=== PATIENT | female | born 1975 | race Caucasian/White ===

== ENCOUNTER 2022-08-16 16:27 | Emergency (ER) | payer BC, SELFPAY ==
[2022-08-16 16:37] VITALS: BP 192/122; BP 194/104; PULSE 110; PULSE 125; RESP 18; O2SAT 100; O2SAT 98; BMI 23.4
--- NOTE | 2022-08-16 16:41 | ED.ARRPALP ---
HPI - Arrhythmia/Palpitations General Chief Complaint: Arrhythmia/Palpitations Stated Complaint: FEELS FAINT/FLUSH ?RXN TO NEW MED PER EMS Time Seen by Provider: 08/16/22 16:30 Source: patient and EMS Mode of arrival: EMS Limitations: no limitations History of Present Illness HPI narrative: 37-year-old female who presents emergency department for evaluation tachycardia, facial flushing, disorientation and tingling in her entire body. The patient states that in June of 2022 she had COVID. She states that since that time she has been having increased anxiety. She states she does have a history of anxiety but has never been on medications. She has had panic attacks in the past. She states that she saw her doctor on Wednesday (3 days prior) and was started on venlafaxine 37.5 mg daily. She states she took a dose yesterday and felt slightly drowsy but was able to do all of her activities without any difficulty. She states she took a dose again this morning. She states that she did usual routines. This afternoon she was doing some yoga and stretching. After this exercise she sat on her sofa and then felt her heart was racing fast. She states that her face became flushed. She felt disoriented. She states that her whole body was tingling. She was concerned about the symptoms and called an ambulance. On arrival to the emergency department she is feeling better. She states that these symptoms are different than her panic attack symptoms. The patient denied being depressed, suicidal or homicidal. She is not certain why she is having increased anxiety, she states that her life is less stressful than normal. Related Data Allergies Allergy/AdvReac Type Severity Reaction Status Date / Time codeine Allergy Unknown Verified 08/16/22 16:37 Sulfa (Sulfonamide Allergy Unknown Verified 08/16/22 16:37 Antibiotics) Review of Systems Review of Systems: Yes all other systems are reviewed and are negative PMFSH Past Medical History PMFSH Narrative: Past medical history: Anxiety, hypertension. Social history: She denies tobacco use. She occasionally drinks alcohol. She denies drug use. Medical History (Updated 08/16/22 @ 18:28 by Fernando Garcia MD) Anxiety HTN (hypertension) Social History Social History Alcohol intake: current Alcohol intake frequency: 0-2 drinks per day Smoked in Last 30 Days: No Use of substances other than those prescribed or required for medical reasons: No Advance Directives: No Advance Directives Information Provided: No Patient : No Physical Exam Vital Signs: Vital Signs: Last Vital Signs Temp 98.5 F 08/16/22 17:18 Pulse 114 H 08/16/22 17:18 Resp 12 08/16/22 17:18 BP 184/111 H 08/16/22 17:18 Pulse Ox 100 08/16/22 17:18 O2 Del Method 08/16/22 17:18 BMI result Body Mass Index 23.4 Const: Other: Awake, alert, female patient, pleasant, cooperative, does appear to be anxious, is in no distress, answers all questions appropriately HEENT: Head: Yes normal to inspection, Yes normocephalic and Yes atraumatic Ears: external ears normal General nose exam: Normal external nose present Face and sinus: Yes normal facial exam Mouth: Normal oral and palatal mucosa present Throat: Yes posterior oropharynx normal Eyes: General: appearance normal, both eyes and all related structures Pupils: Equal, round and reactive pupils present Neck: Neck: Yes normal visual inspection, Yes no lymphadenopathy, Yes trachea midline and Yes supple Chest: Chest palpation & inspection: normal inspection of the chest and normal palpation of entire chest wall Resp: Effort & Inspection: normal respiratory effort and able to speak in complete sentences Auscultation: clear to auscultation bilaterally Cardio: Rate: tachycardic Rhythm: regular rhythm Heart sounds: S1 normal heart sound present, S2 normal heart sound present and no murmurs GI: Inspection: Yes normal to inspection Palpation (GI): Soft to palpation, nontender and no guarding Auscultation: normal bowel sounds : General: Yes no CVA tenderness Back/Spine/Pelvis: Back: no CVA tenderness Skin: General skin exam: no rashes or lesions noted Neuro: Cranial nerves: Yes CN's II-XII intact bilaterally and Yes Equal, round and reactive pupils present Cognition (Neuro): normal cognition Motor exam (neuro): 5/5 motor strength present throughout Extrem: General: Yes normal to inspection Psych: Appearance: grossly normal Speech and movement: Normal speech and movement present Affect: normal affect Attitude: cooperative Thought process: Normal thought process present Thought content: Normal thought content present Medications Administered Discontinued Medications Generic Name Dose Route Start Last Admin Trade Name Freq PRN Reason Stop Dose Admin Lorazepam 0.5 mg 08/16/22 17:21 08/16/22 17:28 Lorazepam 0.5 Mg Tablet PO 08/16/22 17:22 0.5 mg ONCE ONE Administration Medical Decision Making Medical Decision Making [facility] Narrative: 47-year-old female who presents emergency department for evaluation of sudden onset of facial flushing, tachycardia, body tingling this, and feeling disoriented. Patient's PCP started her on a new medication yesterday for anxiety, venlafaxine 37.5 mg daily. She took a dose yesterday morning and felt drowsy otherwise had no other side effects. She took another dose this morning and prior to coming to the emergency department, after stretching and doing yoga exercise she had sudden onset of the above symptoms. Paramedics reported that the patient did have an elevated blood pressure 194/104 with an elevated pulse of 110. At the time my evaluation, the patient does appear to be anxious otherwise is not in distress. Heart exam did reveal tachycardia otherwise her exam was unremarkable. I did order laboratory evaluation includes CBC, CMP, troponin, EKG. Patient will be treated with Ativan 1 mg orally. Patient will be placed on a cardiac and O2 saturation monitor. 1823: Patient's laboratory evaluation was unremarkable. Patient's 12 EKG was normal. The patient's presentation is most likely caused by an adverse reaction to the venlafaxine or caused by her anxiety/panic attacks. Patient wanted to start with only 0.5 mg of Ativan but she is not feeling better therefore she was ordered to get a 2nd dose of Ativan 1 mg orally. The patient will be discharged home. She was advised to contact her provider who prescribed her medication to discuss discontinuing in trying another medication for her anxiety. Patient's blood pressure was high but she states that she does have white coat syndrome and that her blood pressures at home are usually normal. Patient was given printed and verbal instructions Differential Diagnosis Differential diagnosis includes but is not limited to anxiety, panic attack, tachy arrhythmia, electrolyte abnormality, NSTEMI, adverse reaction to venlafaxine Lab Data [facility] Lab Attestation statement: I reviewed the patient's lab results. My independent interpretation of the patient's laboratory evaluation is as follows: CBC was normal. Bicarb elevated 30. Glucose elevated 142. High sensitive troponin I below detectable limits. 08/16/22 17:17 08/16/22 17:17 Labs: Lab Results 08/16/22 08/16/22 08/16/22 Range/Units 17:17 17:17 17:17 WBC 8.2 (4.8-10.8) X10*3/uL RBC 4.39 (4.20-5.50) X10*6/uL Hgb 14.1 (12.0-16.0) g/dl Hct 40.9 (37.0-47.0) % MCV 93.2 (80.0-98.0) fL MCH 32.1 (27.0-33.0) pg MCHC 34.5 (31.0-35.0) g/dl RDW 11.9 (11.0-16.0) % Plt Count 328 (160-400) X10*3/uL MPV 10.1 (9.4-12.3) fL Immature Gran % (Auto) 0.2 (0.0-0.4) % Neut % (Auto) 78.5 H (45-73) % Lymph % (Auto) 14.8 L (20-40) % Cloud % (Auto) 4.8 (2-11) % Eos % (Auto) 0.7 (0-4) % Baso % (Auto) 1.0 (0-2) % Lymph # (Auto) 1.2 (1.2-4.9) X10*3/uL Cloud # (Auto) 0.4 (0.1-1.2) X10*3/uL Eos # (Auto) 0.1 (0.0-0.4) X10*3/uL Baso # (Auto) 0.1 (0.0-0.2) X10*3/uL Abs Immat Gran (auto) 0.02 (0.00-0.03) X10*3/uL Absolute Neuts (auto) 6.4 (2.0-8.3) x10*3/uL Absolute Nucleated RBC 0.000 (0.0-0.012) X10*3/uL Nucleated RBC % (auto) 0.0 (0.0-0.2) /100WBC Sodium 139 (135-145) mmol/L Potassium 3.6 (3.3-5.1) mmol/L Chloride 101 (96-108) mmol/L Carbon Dioxide 30 H (22-29) mmol/L Anion Gap 12 (12-20) BUN 16 (9-16) mg/dL Creatinine 0.79 (0.5-1.4) mg/dL Estim Creat Clear Calc 64.5 Estimated GFR > 60 Random Glucose 142 H (60-115) mg/dL Calcium 9.4 (8.4-10.2) mg/dL Total Bilirubin 0.3 (0.0-1.0) mg/dL AST 20 (5-31) U/L ALT 16 (0-31) U/L Alkaline Phosphatase 56 (39-117) U/L Troponin I High Sens < 3.5 (<3.5-17.0) ng/L Total Protein 7.7 (6.5-8.0) g/dL Albumin 4.6 (3.5-5.0) g/dL Independent Interpretation I performed an independent interpretation of an: EKG Interpretation: My independent interpretation of the patient's 12 EKG is as follows: Normal sinus rhythm with a rate of 94, normal WA interval, prolonged QRS of 100 milliseconds, normal QTC interval of 445 milliseconds, inverted T-wave in lead 3, no ST segment elevation, no ST segment depression no old EKG for comparison. This is a normal EKG. Discharge Plan Discharge Clinical Impression: Anxiety, Sinus tachycardia Adverse drug reaction Qualifiers: Encounter type: initial encounter Qualified Code(s): T50.905A - Adverse effect of unspecified drugs, medicaments and biological substances, initial encounter Patient Disposition: Home, Self-Care Instructions: Anxiety (ED) Additional Instructions: Your blood work was normal. Your high sensitivity troponin I which is a marker of heart damage was below detectable limits which is very reassuring. Your 12 EKG was normal. At this time, your symptoms are either consistent with an adverse drug reaction to venlafaxine or may be secondary to your anxiety. Your treated with Ativan 0.5 mg orally and a 2nd dose of Ativan 1 mg orally. You should discuss further treatment of your anxiety with your prescribing provider, you should stop taking that venlafaxine at this time. Follow-up with your doctor in 2 days. Please return to the emergency department if your symptoms get worse or if you develop any symptoms that are concerning to you.
--- NOTE | 2022-08-16 16:42 | ECG_ITS ---
Test Reason : ALLERGIC REACTION Blood Pressure : / mmHG Vent. Rate : 094 BPM Atrial Rate : 094 BPM P-R Int : 138 ms QRS Dur : 100 ms QT Int : 356 ms P-R-T Axes : 077 072 038 degrees QTc Int : 445 ms Normal sinus rhythm Possible Left atrial enlargement Borderline ECG No previous ECGs available Referred By: Fernando Garcia Electronically Signed By:RUI HANSEN MD
[2022-08-16 16:48] VITALS: BP 194/104; PULSE 108
--- NOTE | 2022-08-16 16:51 | PC.NURSE ---
ambulated to br w/o diff. felt off but no incidences.
[2022-08-16 17:18] VITALS: BP 184/111; PULSE 114; RESP 12; TEMP 36.9; O2SAT 100
[2022-08-16 17:24] LABS: MANUAL DIFF FLAG NO
[2022-08-16] MEDS: LORazepam 0.5 MG TABLET PO (17:28)
[2022-08-16 17:32] LABS: Basophils Absolute Auto 0.1 X10*3/uL (0.0-0.2); Eosinophils Absolute Auto 0.1 X10*3/uL (0.0-0.4); Eosinophils Percent Auto 0.7 % (0-4); Hematocrit 40.9 % (37.0-47.0); Hemoglobin 14.1 g/dl (12.0-16.0); Imm Gran Abs Auto 0.02 X10*3/uL (0.00-0.03); Imm Gran Pct Auto 0.2 % (0.0-0.4); Lymphocytes Absolute Auto 1.2 X10*3/uL (1.2-4.9); Lymphocytes Percent Auto 14.8 % (20-40); Mean Corpuscular HGB Conc 34.5 g/dl (31.0-35.0); Mean Corpuscular Hemoglobin 32.1 pg (27.0-33.0); Mean Corpuscular Volume 93.2 fL (80.0-98.0); Mean Platelet Volume 10.1 fL (9.4-12.3); Monocytes Absolute Auto 0.4 X10*3/uL (0.1-1.2); Monocytes Percent Auto 4.8 % (2-11); Neutrophils Absolute Auto 6.4 x10*3/uL (2.0-8.3); Neutrophils Percent Auto 78.5 % (45-73); Platelet Count 328 X10*3/uL (160-400); Red Blood Count 4.39 X10*6/uL (4.20-5.50); Red Cell Distribution Width 11.9 % (11.0-16.0); White Blood Count 8.2 X10*3/uL (4.8-10.8)
[2022-08-16 17:50] LABS: Alanine Aminotransferase 16 U/L (0-31); Albumin Level 4.6 g/dL (3.5-5.0); Alkaline Phosphatase 56 U/L (39-117); Anion Gap 12 (12-20); Aspartate Amino Transferase 20 U/L (5-31); Bilirubin Total 0.3 mg/dL (0.0-1.0); Blood Urea Nitrogen 16 mg/dL (9-16); Calcium 9.4 mg/dL (8.4-10.2); Carbon Dioxide 30 mmol/L (22-29); Chloride 101 mmol/L (96-108); Creatinine Clr Calc Pharmacy 64.5; Estimated Glomerular Filt Rate > 60; Glucose Random 142 mg/dL (60-115); Potassium 3.6 mmol/L (3.3-5.1); Sodium 139 mmol/L (135-145); Total Protein 7.7 g/dL (6.5-8.0)
[2022-08-16 17:57] LABS: Troponin-I High Sensitivity < 3.5 ng/L (<3.5-17.0)
[2022-08-16] MEDS: LORazepam 1 MG TABLET PO (18:57)
== END 2022-08-16 19:08 | disposition home or self-care (01) ==
PROVIDERS: Emergency Provider Emergency Medicine Emergency Medical Services
DX: I49.9 Cardiac arrhythmia, unspecified (principal); R00.2 Palpitations; R00.0 Tachycardia, unspecified; F41.1 Generalized anxiety disorder; F43.0 Acute stress reaction; Z79.899 Other long term (current) drug therapy
CPT/HCPCS: 36415; 80053; 84484; 85025; 93005; 99285